=== PATIENT | male | born 1995 | race Caucasian/White ===

== ENCOUNTER 2024-02-05 03:21 | Emergency (ER) | payer BC ==
[~2024-02-05] VITALS: Ht 177.8 cm; Wt 72.6 kg
[2024-02-05] MEDS ORDERED: IBUPROFEN 400 MG TABLET ONE (03:59)
[2024-02-05] MEDS: IBUPROFEN 400 MG TABLET PO ONE (04:00)
[2024-02-05 05:38] VITALS: BP 123/68; TEMP 97.6; O2SAT 99
== END 2024-02-05 05:39 | disposition home or self-care (01) ==
LOC: ER 03:26
DX: S52.501A Unspecified fracture of the lower end of right radius, initial encounter for closed fracture (principal); S53.402A Unspecified sprain of left elbow, initial encounter; W01.0XXA Fall on same level from slipping, tripping and stumbling without subsequent striking against object, initial encounter; Y93.89 Activity, other specified; Y92.89 Other specified places as the place of occurrence of the external cause; Y99.8 Other external cause status
CPT/HCPCS: 73080-TC; 73110